=== PATIENT | female | born 1975 | race Caucasian/White ===

== ENCOUNTER 2017-01-17 13:50 | Emergency (ER) | payer MEDICAID ==
[2017-01-17] MEDS ORDERED: Albuterol 2.5 MG/3 ML NEB.SOL* (0.083%) INH ONE (14:49)
[2017-01-17] MEDS ORDERED: Ipratropium 0.5MG/2.5ML NEB* 0.5 MG/2.5 ML NEB.SOLN INH ONE (14:49)
--- NOTE | 2017-01-17 14:49 | UC ---
Shortness of Breath HPI - History of Current Complaint Chief Complaint: UCRespiratory Stated Complaint: COUGH Time Seen by Provider: 01/17/17 14:42 Hx Obtained From: Patient Hx Last Menstrual Period: 12/30/16 ?: No Onset/Duration: Gradual Onset - cough x1 months, Worse Since - last 2-3 days with left anterior chest wall pain with cough. Current Severity: Moderate Aggrevating Factors: Deep Breaths, Recumbent Position Associated Signs & Symptoms: Positive: Cough (Nonproductive), Chest Pain w/ Cough - left lower. Negative: Fever - Risk Factors Pulmonary Embolism: DVT, Previous PE, Smoking Cardiac: Family History Pseudomonas: Negative - Allergy/Home Medications Allergies/Adverse Reactions: Allergies Allergy/AdvReac Type Severity Reaction Status Date / Time No Known Allergies Allergy Verified 01/17/17 13:55 PMH/Surg Hx/FS Hx/Imm Hx Respiratory History: Pulmonary Embolism - Surgical History Surgical History: Yes Surgery Procedure, Year, and Place: Tubal. Gallbladder. Stent in LEFT leg 2014 - Family History Known Family History: Positive: Cardiac Disease, Hypertension, Diabetes - Social History Lives: With Family Alcohol Use: Weekly Substance Use Type: None Smoking Status (MU): Current Every Day Smoker Type: Cigarettes Amount Used/How Often: 1/2-1 PPD Have You Smoked in the Last Year: Yes Cessation Counseling: Patient Advised to Stop - Immunization History Most Recent Influenza Vaccination: NONE 2016 Most Recent Tetanus Shot: UTD Review of Systems Constitutional: Fatigue - with sweats Respiratory: Shortness Of Breath - mainly due to chest pain with cough., Cough Cardiovascular: Chest Pain All Other Systems Reviewed And Are Negative: Yes Physical Exam Triage Information Reviewed: Yes Appearance: Well-Appearing, Well-Nourished, Pain Distress - with cough Vital Signs: Initial Vital Signs Temp 98.2 F 01/17/17 13:56 Pulse 102 01/17/17 13:56 Resp 18 01/17/17 13:56 BP 125/84 01/17/17 13:56 Pulse Ox 99 01/17/17 13:56 Vital Signs Reviewed: Yes Eye Exam: Other ENT: Positive: Pharynx normal, TMs normal Neck exam: Normal Respiratory: Positive: Lungs clear, Wheezing - with coughing Cardiovascular Exam: Normal Abdominal Exam: Normal Bowel Sounds: Positive: Present Musculoskeletal Exam: Normal Musculoskeletal: Positive: ROM Limited @ - unable to take a deep breath without coughing. Neurological Exam: Normal Psychological Exam: Normal Skin Exam: Normal Re-Evaluation - Re-Evaluation First Eval Re-Evaluation Time: 15:45 Change: Improved - able to take a deep breath without coughing. Shortness of Breath Dx - Differential Dx/Diagnosis Differential Diagnosis/HQI/PQRI: Asthma, Chest Wall Pain, COPD Exacerbation, Pneumonia Provider Diagnoses: Bronchospasm. Chest wall pain. Smoking. Discharge - Discharge Plan Condition: Stable Disposition: HOME Prescriptions: Acetaminop/Codeine 30 MG TAB* [Tylenol/Codeine 30 MG TAB*] 1 tab PO Q6H PRN #10 tab MDD 4 PRN Reason: Pain - Chest Albuterol HFA INHALER* [Ventolin HFA Inhaler*] 2 puff INH Q4H PRN #1 mdi PRN Reason: Wheezing predniSONE TAB* [Deltasone TAB*] 20 mg PO DAILY #18 tab Patient Education Materials: Bronchospasm (ED), Prednisone (By mouth), How to Use a Metered-Dose Inhaler (ED), Acetaminophen/Codeine (By mouth) Additional Instructions: Smoking Cessation Tricks. 1. Cut down by 1 cigarette per day every 2-3 days. Write the number of smokes for that day on the calendar. 2. Identify triggers to smoking: after meals, on the phone, in the car, with coffee, on breaks at work, etc. 3. Formulate a plan with a behavior to replace the smoking. Fireballs in the car , doodle pad on the phone, flavored creamer for the coffee, go for a walk after a meal or on break at work. 4. For stress smokes do deep breathing relaxation. Breath deep in through the nose hold the breath in for a few seconds then breath out slowly through the mouth.
[2017-01-17 16:11] VITALS: BP 120/83
--- NOTE | 2017-01-17 16:13 | RAD ---
HISTORY: Cough, shortness of breath COMPARISONS: None VIEWS: 4: Frontal dual-energy and lateral views of the chest. FINDINGS: CARDIOMEDIASTINAL SILHOUETTE: The cardiomediastinal silhouette is normal. LORAINE: The loraine are normal. PLEURA: The costophrenic angles are sharp. No pleural abnormalities are noted. LUNG PARENCHYMA: The lungs are clear. ABDOMEN: The upper abdomen is clear. There is no subphrenic gas. BONES AND SOFT TISSUES: No bone or soft tissue abnormalities are noted. OTHER: None. IMPRESSION: NO ACTIVE CARDIOPULMONARY DISEASE.
== END 2017-01-17 16:33 | disposition home or self-care (01) ==
LOC: UCCORT 13:50
DX: R07.89 Other chest pain (principal); J98.01 Acute bronchospasm; Z86.711 Personal history of pulmonary embolism; Z90.49 Acquired absence of other specified parts of digestive tract; F17.210 Nicotine dependence, cigarettes, 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
CPT/HCPCS: 71020; 93005; 99212; G0463; J7644

== ENCOUNTER → 2017-11-12 10:48 | Day surgery (SDC) | payer MEDICAID ==
[~2017-11-12 10:48] MED LIST: Flumazenil* 0.1 MG/ML 5 ML MDV ONE; Heparin 2 UNITS/ML IVPREMIX* 1,000 ML IV ONE; Heparin 2 UNITS/ML IVPREMIX* 2,000 ML IV ONE; Heparin(*) 1000 UNIT/ML 10 ML VIAL CATH LAB IV ONE; Iodixanol* (CONTRAST) 320 MG/ML 100 ML SDV ONE; Iohexol 350 (CONTRAST) 200 ML MDV IV ONE; LORazepam TAB(*) 1 MG ONE; Lidocaine 1% INJ* 10 MG/ML 30 ML SDV ONE; Midazolam* 1 MG/ML 5 ML VIAL (5 MG) ONE; Naloxone* 0.4 MG/ML 1 ML VIAL ONE; fentaNYL* 50 MCG/ML 2 ML VIAL (100 MCG VIAL) ONE; fentaNYL* 50 MCG/ML 5 ML VIAL (250 MCG VIAL) ONE; nitroGLYCERIN DRIP* 0 MCG/0 ML BTL ONE
[2017-11-12 11:36] LABS: Hematocrit 44 % (35-47); Hemoglobin 15.3 g/dl (12.0-16.0); Mean Corpuscular HGB Conc 35 g/dl (31-36); Mean Corpuscular Hemoglobin 33 pg (27-31); Mean Corpuscular Volume 96 fL (80-97); Mean Platelet Volume 10.3 um3 (7.4-10.4); Platelet Count 181 10^3/ul (150-450); Red Cell Distribution Width 14 % (10.5-15); White Blood Count 7.5 10^3/ul (3.5-10.8)
[2017-11-12 11:46] LABS: INR 0.86 (0.77-1.02)
[2017-11-12 12:05] LABS: EGFR Non-African American 69.6 (>60)
[2017-11-12 12:56] LABS: ABS Basophils 0.1 10^3/ul (0-0.2); ABS Eosinophils 0.2 10^3/ul (0-0.6); ABS Lymphocytes 1.3 10^3/ul (1.0-4.8); ABS Monocytes 0.3 10^3/ul (0-0.8); ABS Neutrophils 5.6 10^3/ul (1.5-7.7); ABS Nucleated RBC 0 10^3/ul; Eosinophil % 2.3 % (0-6); Lymphocyte % 17.9 % (25-47); Nucleated Red Blood Cells % 0
[2017-11-12 16:11] VITALS: BP 94/61
--- NOTE | 2017-11-12 16:22 | PN ---
Progress Note - Progress Note Date of Service: 11/12/17 SOAP: Subjective: No pain. No nausea. No SOB. No lightheadedness. No pain walking to bathroom. Objective: Selected Entries 11/12/17 11/12/17 15:58 16:00 Pulse Rate 59 Heart Rate 60 Respiratory 15 Rate Blood Pressure 94/61 (mmHg) Blood Pressure 67 Mean O2 Sat by Pulse 94 Oximetry NAD, AAO x 3 Right groin is soft and nontender. Dressing is CDI. 2+ pulse at right EQUESTRIAN TRAINER, pop, DPA, 1+ at right DOORPERSON RLE neuromuscular intact Assessment: 42 YOF s/p pelvic and RLE arteriogram and balloon angioplasty of stenotic right Common and External Iliac Arteries. Plan: 1. DC to home. 2. IR clinic nurse will call tomorrow to inquire about groin complication. 3. IR clinic follow up in 1 month. 4. Continue Plavix 75 mg PO daily and ASA 81 PO daily.
--- NOTE | 2017-11-13 11:41 | RAD ---
CPT II Codes: G9500 Procedure(s) performed: 1. Diagnostic pelvic arteriogram. 2. Right lower extremity arteriogram. 3. Transduction of intravascular pressures acquired simultaneously in the infrarenal abdominal aorta and right external iliac artery. 4. Balloon angioplasty of the right common and external iliac arteries. Date of service: November 12, 2017 Indication for procedure: Right lower extremity claudication and rest pain Comparison: CTA October 01, 2017 Contrast: 115 mL Omnipaque 300 Fluoroscopy Time: 5.2 minutes Vessels Accessed: Percutaneous access was obtained with ultrasound guidance in the right common femoral artery in the retrograde direction towards the heart. Catheter arteriography, with the catheter tip located within the lumen of the following arteries, was performed at the right external iliac artery and aorta. Anesthesia: Conscious sedation with IV Fentanyl and Versed as well as local 1% lidocaine injected locally at the arteriotomy site. Conscious sedation time: Timeout: 1308 hours Case end: 1407. hours Total conscious sedation time: 59 minutes Additional medications: * The patient received 1 mg of p.o. Ativan prior to the onset of the procedure. PROCEDURE NOTE AND INTRAPROCEDURAL IMAGING FINDINGS: Immediately prior to the procedure the patient signed consent after thoroughly discussing all risks, benefits and alternative therapies. The patient was positioned on the fluoroscopy table in the supine position and the bilateral groins were shaved, prepped and the patient was draped in standard sterile fashion. Using fluoroscopic imaging the location of the right common femoral head was marked externally with a skin marker on the patient's groin. Utilizing sonographic guidance and palpation, the right common femoral artery was cannulated overlying the femoral head with an 18-gauge needle. An ultrasound image was saved. A 0.035" wire was slowly and smoothly advanced into the common femoral artery under fluoroscopic imaging. No buckling of the wire was visualized to indicate dissection. With the wire securing percutaneous arterial access, the needle was removed and a 7-Bengali SideArm access sheath was advanced under fluoroscopic control into the common femoral artery retrograde into the right external iliac artery securing access. Through the side arm of the access sheath arteriography of the right common femoral artery demonstrated an appropriate puncture of the common femoral artery above the bifurcation and below the inferior epigastric artery. Although there is a prior CTA, contrast arteriography of the lower abdominal aorta and iliac arteries was necessary due to calcified atherosclerosis making the CTA somewhat unreliable. In addition the left common iliac stent causes x-ray beam attenuation making CTA analysis of patency of the stent imperfect. Contrast aortography demonstrates adequate patency in the lower abdominal aorta. Wide patency is seen through the left common iliac stent continuing into the left external iliac artery and the proximal femoral arteries. Corresponding to atherosclerotic disease seen on the previous CTA, there are 2 foci of high-grade stenosis at the right common iliac artery extending to the level of the proximal most right external iliac artery. Bilaterally the internal iliac arteries are occluded at their origins and filled by retrograde flow. The wire was replaced and the flush catheter removed for the purpose of intravascular pressure transduction. The following pressures were simultaneously acquired (mm Hg): SBP DBP Mean Aorta: 149 67 94 REIA: 99 [id number] The wire was reinserted accessing the aorta and over the wire a 6 mm x 80 mm Appterak Passeo-35 was advanced to the area of stenosis. Under fluoroscopic control the balloon was slowly inflated. Ultimately the balloon was inflated above the nominal pressure to a pressure corresponding to approximately 6.4 mm in diameter. The balloon remained inflated for a total of 5 minutes to address arterial spasm. Balloon was deflated and removed and arteriography was performed through the access sheath injecting contrast as far as the lower abdominal aorta and filling the bilateral iliac arterial system. There is wide patency at the previously stenotic right common and external iliac arteries. There is no evidence of significant spasm. In addition to claudication the patient exhibited toe discoloration on physical examination and reported episodes of intermittent severe discoloration of the toes and therefore direct arteriography of the lower extremity arteries is indicated. Injecting from the right common femoral artery sheath, wide patency through the common femoral artery and superficial femoral artery is documented continuing into the popliteal artery. The proximal infrapopliteal arteries and tibioperoneal trunk are adequately patent. More distally the posterior tibial artery is the dominant flow to the foot. The peroneal artery and anterior tibial artery both become extremely diminutive at the mid-level lower leg and there is little to no in-line filling of the dorsalis pedis artery after the narrow right anterior tibial artery fills. Overall there is a possibility of arterial blush of the foot, particularly the toes. After an appropriate resterilization of the arteriotomy and exchange for new sterile gloves, a Minx closure device was deployed at the common femoral arteriotomy and pressure held for approximately 12 minutes. There were no signs of bleeding at the percutaneous arterial access site and the site was dressed with sterile gauze and Tegaderm. The patient tolerated the procedure well and was transferred to angiography holding bay for standard post procedural observation. SUMMARY OF PROCEDURE, IMAGING FINDINGS AND INTERVENTIONS PERFORMED: 1. Diagnostic studies performed: * Arterial access was obtained at the right common femoral artery in the retrograde direction (i.e. towards the heart) with ultrasound guidance. A sonographic image was recorded. * Despite a prior CTA, catheter arteriography was necessary as calcified atherosclerosis of her disease limited CT evaluation on the right and the previously placed stent created artifact evaluating patency of the stent in the left. * Catheter arteriography was performed with the catheter tip in the infrarenal abdominal aorta and right external iliac artery. * Catheter arteriography was performed of the lower abdominal aorta, bilateral iliac arterial system and the entire right lower extremity to the right toes. * Intraluminal pressure transduction measured at the aorta and right external iliac artery simultaneously. * At the conclusion of the procedure arteriography was performed through the side arm of the access sheath to image the distal right external iliac artery, right common femoral artery and proximal superficial femoral artery and femoral profundus. 2. Interpretation of diagnostic studies performed: * High-grade stenosis of the right common and external iliac arteries. * Adequate patency observed at the previously placed left common iliac stent. * Bilaterally the internal iliac arteries are occluded at their origins. * Single vessel runoff provided by the posterior tibial artery to the forefoot. The peroneal artery and anterior tibial artery both become extremely diminutive in the lower half of the right lower leg. There is essentially no filling seen at the right dorsalis pedis artery. * Arteriography performed for the purpose of deploying a percutaneous arterial closure device demonstrates adequately patent right external iliac artery, common femoral artery and proximal superficial femoral artery and femoral profundus. 3. Surgical interventions performed: * Balloon angioplasty of the right common and external iliac artery with a Appterak Passeo-35 6 mm x 80 mm. * Closure of the right common femoral artery was achieved with a Minx closure device followed by 15 minutes of gentle manual pressure. 4. Interpretation of interventions performed: * Final arteriography demonstrated brisk flow through the patent right common iliac artery and external iliac artery. Plan: 1. Aspirin 81 mg p.o. daily for life. 2. Plavix 75 mg p.o. daily for life. 3. Clinical and imaging follow-up according to standard Interventional Radiology protocol.
== END | disposition home or self-care (01) ==
LOC: CHICATH 10:48
PROVIDERS: ATTEND Radiology Diagnostic Radiology
DX: I70.221 Atherosclerosis of native arteries of extremities with rest pain, right leg (principal); I73.1 Thromboangiitis obliterans [Buerger's disease]; Z79.01 Long term (current) use of anticoagulants; Z88.5 Allergy status to narcotic agent; F17.200 Nicotine dependence, unspecified, 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
CPT/HCPCS: 36415; 75736; 76937; 80048; 84702; 85025; 85610; 85730; 99156; 99157; A9270-GY; C1725; C1760; C1769; C1887; J1644; J2250; J2310; J3010

== ENCOUNTER 2018-11-12 10:03 | Observation (INO) | payer MEDICAID ==
[2018-11-12 10:48] LABS: ABS Eosinophils 0.2 10^3/ul (0-0.6); ABS Lymphocytes 0.9 10^3/ul (1.0-4.8); ABS Monocytes 0.3 10^3/ul (0-0.8); ABS Neutrophils 4.5 10^3/ul (1.5-7.7); Hematocrit 43 % (35-47); Hemoglobin 14.9 g/dL (12.0-16.0); Lymphocyte % 14.6 %; Mean Corpuscular HGB Conc 35 g/dL (31-36); Mean Corpuscular Hemoglobin 33 pg (27-31); Mean Corpuscular Volume 96 fL (80-97); Mean Platelet Volume 9.5 fL (7.4-10.4); Nucleated Red Blood Cells % 0.1; Platelet Count 235 10^3/uL (150-450); Red Blood Count 4.49 10^6 /uL (3.70-4.87); Red Cell Distribution Width 13 % (10-15); White Blood Count 5.9 10^3/uL (3.5-10.8)
[2018-11-12 10:56] LABS: INR 0.93 (0.82-1.09)
[2018-11-12] MEDS ORDERED: LORazepam TAB(*) 1 MG ONE ×2 (10:57)
[2018-11-12 11:13] LABS: HCG Pregnancy 0.7 mIU/mL
[2018-11-12 11:20] LABS: EGFR African American 94.7 (>60); EGFR Non-African American 78.3 (>60); Potassium 3.7 mmol/L (3.5-5.0)
[2018-11-12] MEDS ORDERED: Iohexol 350 (CONTRAST) 200 ML MDV IV ONE (13:38)
[2018-11-12] MEDS ORDERED: Heparin 2 UNITS/ML IVPREMIX* 3,000 UNIT/1,500 ML BAG IV ONE ×2 (13:38)
[2018-11-12] MEDS ORDERED: Lidocaine 1% INJ* 10 MG/ML 30 ML SDV ONE ×2 (13:38)
[2018-11-12] MEDS ORDERED: Midazolam* 1 MG/ML 5 ML VIAL (5 MG) ONE ×2 (13:42)
[2018-11-12] MEDS ORDERED: Flumazenil* 0.1 MG/ML 5 ML MDV ONE (13:42)
[2018-11-12] MEDS ORDERED: fentaNYL* 50 MCG/ML 2 ML VIAL (100 MCG VIAL) ONE ×4 (13:42→16:02)
[2018-11-12] MEDS ORDERED: Naloxone* 0.4 MG/ML 1 ML VIAL ONE (13:42)
[2018-11-12] MEDS ORDERED: Heparin(*) 1000 UNIT/ML 10 ML VIAL CATH LAB IV ONE ×2 (14:17)
[2018-11-12] MEDS ORDERED: diPHENhydraMINE IV* 50 MG/ML 1 ml VIAL (BENADRYL) ONE ×2 (14:21)
[2018-11-12] MEDS ORDERED: Alteplase (CATHFLO)* 10 MG in NS 0.9% 50 ML* 40 ML SCH (15:00)
[2018-11-12] MEDS ORDERED: nitroGLYCERIN DRIP* 25,000 MCG/250 ML BTL ONE ×2 (15:54)
[2018-11-12] MEDS ORDERED: ALTEPLASE ONE ×4 (16:00)
[2018-11-12] MEDS ORDERED: NS 0.9% ONE ×4 (16:00)
[2018-11-12] MEDS ORDERED: Metoprolol Tartrate IV* 1 MG/ML 5 ML VIAL ONE ×2 (16:24)
[2018-11-12] MEDS ORDERED: HYDROmorphone INJ1* 1 MG/ML SYRINGE ONE ×6 (18:18→20:47)
[2018-11-12] MEDS ORDERED: HYDROmorphone INJ* 0.5 MG/0.5 ML SYRINGE IV SLOW PU PRN (19:30)
--- NOTE | 2018-11-12 19:35 | PN ---
Progress Note - Progress Note Date of Service: 11/12/18 SOAP: Subjective: Patient with numbness and pain in the left foot and lower leg. She states this is similar to the symptoms she has for >2 weeks. Denies pelvic or low abdomen pain. Denies pain in left groin. Objective: Selected Entries 11/12/18 11/12/18 11/12/18 18:15 18:38 18:45 Heart Rate 59 67 60 Blood Pressure 141/79 124/69 132/81 (mmHg) Blood Pressure 101 84 86 Mean O2 Sat by Pulse 98 97 97 Oximetry 11/12/18 11/12/18 19:03 19:05 Heart Rate 69 75 Blood Pressure 107/66 (mmHg) Blood Pressure 82 Mean O2 Sat by Pulse 94 95 Oximetry NAD, AAO x 3 Abdomen and pelvis are soft, no rebound Left groin over arteriotomy is soft Patient denies significant pain with palpation Dressing is dry Lower leg and foot are cool to touch Left forefoot is violaceous Neuromuscular function of LLE is grossly intact Assessment: 43 YOF status post pelvic arteriography, catheter and wire revascularization of occluded left ENRIQUE-EIA and balloon angioplasty. A Mynx percutaneous closure device was deployed at the left SF arteriotomy, but swelling and bleeding at the site indicated failure. Direct manual pressure was held for approximately 45 minutes. Hematoma appears to not be actively bleeding or enlarging now almost 2 hours post sheath removal. Plan: 1. Bedrest x 6 hours until 2300 hours. 2. Groin check every 1 hour. If there is swelling, bleeding or pain (at the groin), apply direct manual pressure. 3. Patient is experiencing rest pain in the left foot and lower leg which is similar her symptoms for the last 2-3 weeks. She usually would "dangle her legs " and/or pace to alleviate her rest pain which she cannot do now. Therefore she is going to have rest pain which can be addressed with: * Reverse Trendelenberg as much as can be done safely. * Dilaudid 1 mg IV Q 2 hours PRN 4. No Plavix, ASA or anticoagulation until 11/13/18. 5. Baseline H&H 6. Circumference measurement of left thigh as instructed in Nursing communication.
[2018-11-12 21:04] LABS: Hematocrit 37 % (35-47); Hemoglobin 12.8 g/dL (12.0-16.0)
[2018-11-12] MEDS ORDERED: HYDROmorphone INJ1* 1 MG/ML SYRINGE IV PRN (21:20)
--- NOTE | 2018-11-12 21:32 | HP ---
HISTORY AND PHYSICAL: DATE OF ADMISSION: 11/12/18 ADMITTING PROVIDER: Palomo Lester MD PRIMARY CARE PROVIDER: Dr. Jimenez. INTERVENTIONAL RADIOLOGIST: Dr. Tahir Keenan. CHIEF COMPLAINT: Severe rest leg pain in the setting of severe peripheral vascular disease; need for postprocedure bedrest for at least 6 hours. HISTORY OF PRESENT ILLNESS: Ngoc Dubon is a 43-year-old female, current smoker with 25 pack years, severe peripheral vascular disease, status post left iliac stent [address] Green in [place] and status post right angioplasty with Dr. Keenan last year. She has had severe rest pain and claudication symptoms. She had a CTA of aortic runoff 2 days prior to admission on 11/10/18, which demonstrated interval occlusion of the left common iliac artery stent with noncalcified occlusive atherosclerosis and thrombus occluding the left common and external iliac arteries. There was diminutive left common femoral artery fills by collateralized flow. There is recurrent 75 degree stenosis in the distal right common iliac artery extending into the right external iliac artery. There was an interval development of a mural thrombus along the left lateral margin of the lower infrarenal abdominal aorta that narrows the lumen back to approximately 30%. Dr. Keenan attempted revascularization of common iliac arteries without success despite 3-hour attempt. The closure device was attempted, but was not successful and pressure needed to be applied to prevent hematoma. She is requiring additional 6 hours of bedrest and she is not able to stay in the PACU for that period of time given the time of day. She is, therefore, requiring short observation admission to the surgical short stay unit to control pain, provide bedrest in the supervised setting and monitor the vascular status of her left lower extremity. She has rest pain at baseline and is up frequently pacing through the night. She has complained of 9/10 pain in the left foot during the first part of the rest pain and was given 0.5 mg IV Dilaudid at 6:27 and another 0.5 mg IV Dilaudid at 6:32. She was otherwise without complaints with resolved symptoms currently. PAST MEDICAL HISTORY: Severe peripheral vascular disease, current smoker. PAST SURGICAL HISTORY: Cholecystectomy, tubal ligation, left common iliac stent with Dr. Green 4 years ago status post right iliac angiogram in October 2017. MEDICATIONS: Include: 1. Clopidogrel 75 mg p.o. daily (she took last night) 2. Atorvastatin 40 mg daily. 3. Aspirin 81 mg daily. ALLERGIES: DEMEROL (itching) FAMILY HISTORY: Strong family history maternally of breast cancer with her mother and 5 maternal aunts, all having breast cancer (3 aunts survived past from this disease and everyone has been tested negative for BRCA including Ngoc last month). Father of a lung cancer and liver disease age 65. SOCIAL HISTORY: The patient is a current smoker, age 17 till present, currently one-third to one-quarter pack per day, but mostly 1 pack per day, over 25 pack years. She drinks 6 beers about twice a month. 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 PHYSICAL EXAMINATION GENERAL APPEARANCE: No acute distress. VITAL SIGNS: Temperature 97.7, pulse 75, respiratory rate 16, blood pressure 141/79, oxygen sat 98%. HEENT: Normocephalic, atraumatic. Pupils equal, round, and reactive to light. Extraocular motions intact. No scleral icterus. LUNGS: Clear to auscultation anteriorly with no wheezing, rales, or rhonchi. CARDIOVASCULAR: Regular rate and rhythm. No murmurs, rubs, or gallops. ABDOMEN: Soft, nontender, nondistended. No rebound. No guarding. EXTREMITIES: Right, warm and well perfused. Left, light purple color, Dopplerable pulses, not palpable. Sensation intact. Strength intact. Left groin with very small hematoma at the puncture site approximately 2 cm. NEUROLOGIC: Cranial nerves II through XII intact. Moving all extremities. DIAGNOSTIC STUDIES/LAB DATA: White count 5.9, hemoglobin 14.9, hematocrit 43, platelets 235. INR 0.93. Sodium 140, potassium 3.7, chloride 106, carbon dioxide 26, BUN 8, creatinine 0.8, glucose 94, calcium 10.0 Imaging: As per above. She had a CTA of an aortic runoff 2 days prior to admission on 11/10/18, which demonstrated interval occlusion of the left common iliac artery stent with noncalcified occlusive atherosclerosis and thrombus occluding the left common and external iliac arteries. There was diminutive left common femoral artery fills by collateralized flow. There is recurrent 75 degree stenosis in the distal right common iliac artery extending into the right external iliac artery. There was an interval development of a mural thrombus along the left lateral margin of the lower infrarenal abdominal aorta that narrows the lumen back to approximately 30%. ASSESSMENT AND PLAN: Ngoc Dubon is a 43-year-old female with severe peripheral vascular disease, status post failed revascularization attempted in the left common iliac artery and then problems with the closure device in the left femoral access site requiring at least 6 hours of postoperative rest between 5 p.m. and 11 p.m. As PACU is closing, she requires transfer to surgical short stay unit for observation admission. She could potentially leave later tonight versus tomorrow, the next day, depending on the clinical course. She does have significant pain and requirements and rest, which she is now required to do and I am continuing Dilaudid 0.5 mg q.2 hours p.r.n. She will be on Plavix and aspirin for life, which I am starting tomorrow. Continue Lipitor. I am putting in an order for nicotine patch as she does say she is interested in stopping smoking at this time along with a nicotine inhaler, that overall plan will be to refer to [facility] with either Dr. Leora Don or Dr. Bird for potential vascular bypass. She is a full code. Medical surrogate is her Ashish Dubon. I will keep her n.p.o. except for just with meds while she is lying flat. [id number]/CPS #: [id number] [facility] HOSPITALHeather
[2018-11-12 23:42] VITALS: BP 148/72
[2018-11-13] MEDS ORDERED: Clopidogrel TAB* 75 MG PO SCH (09:00)
[2018-11-13] MEDS ORDERED: Atorvastatin* 40 MG TAB PO SCH (09:00)
[2018-11-14] MEDS ORDERED: Aspirin EC TAB* 81 MG TAB.EC PO SCH (09:00)
== END 2018-11-12 23:15 | disposition home or self-care (01) ==
LOC: CHICATH 10:03 → SSU 19:58
PROVIDERS: ADMIT Internal Medicine; ATTEND Internal Medicine
DX: I70.213 Atherosclerosis of native arteries of extremities with intermittent claudication, bilateral legs (principal); I73.9 Peripheral vascular disease, unspecified; M79.604 Pain in right leg; F17.210 Nicotine dependence, cigarettes, 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; Z98.61 Coronary angioplasty status; Z79.82 Long term (current) use of aspirin; J44.9 Chronic obstructive pulmonary disease, unspecified; L20.9 Atopic dermatitis, unspecified; J30.9 Allergic rhinitis, unspecified; K21.0 Gastro-esophageal reflux disease with esophagitis; E55.9 Vitamin D deficiency, unspecified; R41.9 Unspecified symptoms and signs involving cognitive functions and awareness; N64.4 Mastodynia; N60.29 Fibroadenosis of unspecified breast; Z80.3 Family history of malignant neoplasm of breast
CPT/HCPCS: 36415; 80048; 84702; 85014; 85018; 85025; 85347; 85610; 96374; 96376; A9270-GY; G0378; J1170; J1200; J1644; J2250; J2310; J2997; J3010; J3490

== ENCOUNTER 2018-11-21 09:56 | Emergency (ER) | payer MEDICAID ==
--- OUTSIDE RECORDS SUMMARY | 2018-11-21 10:19 | XMS REPORT | Continuity of Care Document ---
:1975 External Reference #:[id number] Author Name Elier Jimenez M.D. 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 Payers Date Identification Numbers Payment Provider Subscriber Policy Number: [id number] Medicaid/[employer] PayID: [id number] [address] [place] [address] Family History Date Family Member(s) Observation Comments General Liver Cancer General Diabetes General Hypertension Father due to Liver Disease () Father due to Lung Cancer () Mother Breast Cancer Mother Hypertension Children 3 Siblings 4 Grandmother due to Natural Causes () Maternal Aunts due to Breast CA At Age 48 () Social History Type Date Description Comments Sex Unknown Marital Status Legal Status: Work Status Unemployed ETOH Use Occasionally consumes alcohol Tobacco Use Start: Unknown Heavy tobacco smoker (more than 10 cigarettes/day) Recreational Drug Use Denies Drug Use Smoking Status Reviewed: 10/22/18 Heavy tobacco smoker (more than 10 cigarettes/day) Allergies, Adverse Reactions, Alerts Description No Known Drug Allergies Medications Active Medications SIG Qnty Indications Ordering Provider Date Plavix 1 by mouth every 90tabs I70.213 Elier Jimenez, 02/03/2017 75mg Tablets day M.D. Atorvastatin Calcium take one tablet 90tabs E78.2 Elier Jimenez, 2016 40mg by mouth at M.D. Tablets bedtime I70.213 History Medications Prednisone 2 tab by mouth 8tabs Elier Jimenez 09/02/2018 - 20mg Tablets daily 4 days M., M.D. 09/05/2018 Azithromycin 1 tab by mouth 7tabs [facility] 09/02/2018 - 500mg every day M., M.D. 09/09/2018 Tablets Azithromycin 1 tab by mouth 10tabs [facility] 01/29/2017 - 500mg every day M., M.D. 02/07/2017 Tablets Prednisone 2 tab by mouth 20tabs [facility] 01/29/2017 - 20mg Tablets daily 4 M., M.D. 02/13/2017 days,30x3d,20x2d ,10x7d Ibuprofen 1 by mouth three 90tabs M15.9 [facility] 01/29/2017 - 800mg Tablets times a day as M. M.D. 08/30/2017 needed Omeprazole 1 by mouth every 30caps K21.0 [facility] 12/25/2016 - 40mg Capsules day M., M.D. 08/30/2017 Buspirone HCL 1 by mouth twice 60tabs F41.9 [facility] 12/25/2016 - 10mg a day M., M.D. 09/29/2018 Tablets Vitamin D-3 1 by mouth every OTC E55.9 [facility] 12/25/2016 - 1000Unit day M., M.D. 08/30/2017 Capsules Vital Signs Date Vital Result Comment 10/26/2018 3:30pm BP Systolic 128 mmHg BP Diastolic 88 mmHg Height 64 inches 5'4" Weight 128.00 lb BMI (Body Mass Index) 22.0 kg/m2 Heart Rate 104 /min Respiratory Rate 16 /min 09/02/2018 1:31pm BP Systolic 138 mmHg BP Diastolic 68 mmHg Height 64 inches 5'4" Weight 130.00 lb BMI (Body Mass Index) 22.3 kg/m2 Heart Rate 65 /min Respiratory Rate 16 /min 04/20/2018 3:01pm BP Systolic 146 mmHg BP Diastolic 88 mmHg Height 64 inches 5'4" Weight 130.00 lb BMI (Body Mass Index) 22.3 kg/m2 Heart Rate 94 /min Respiratory Rate 16 /min 03/18/2018 3:03pm BP Systolic 118 mmHg BP Diastolic 70 mmHg Height 64 inches 5'4" Weight 128.00 lb BMI (Body Mass Index) 22.0 kg/m2 Heart Rate 98 /min Respiratory Rate 16 /min 02/25/2018 1:55pm BP Systolic 140 mmHg BP Diastolic 70 mmHg Height 64 inches 5'4" Weight 129.00 lb BMI (Body Mass Index) 22.1 kg/m2 Heart Rate 68 /min Respiratory Rate 16 /min 09/22/2017 3:02pm BP Systolic 124 mmHg BP Diastolic 72 mmHg Height 64 inches 5'4" Weight 135.00 lb BMI (Body Mass Index) 23.2 kg/m2 Heart Rate 86 /min Respiratory Rate 16 /min 02/03/2017 3:57pm BP Systolic 130 mmHg BP Diastolic 68 mmHg Height 64 inches 5'4" Weight 137.00 lb BMI (Body Mass Index) 23.5 kg/m2 Heart Rate 90 /min Respiratory Rate 16 /min 01/29/2017 11:25am BP Systolic 102 mmHg BP Diastolic 58 mmHg Height 64 inches 5'4" Weight 132.00 lb BMI (Body Mass Index) 22.7 kg/m2 Heart Rate 99 /min Respiratory Rate 16 /min 12/25/2016 9:19am BP Systolic 110 mmHg BP Diastolic 70 mmHg Height 64 inches 5'4" Weight 136.00 lb BMI (Body Mass Index) 23.3 kg/m2 Heart Rate 88 /min Respiratory Rate 18 /min 10/15/2016 1:44pm BP Systolic 138 mmHg BP Diastolic 78 mmHg Height 64 inches 5'4" Weight 132.00 lb BMI (Body Mass Index) 22.7 kg/m2 Heart Rate 78 /min Respiratory Rate 16 /min 10/08/2016 1:30pm BP Systolic 120 mmHg BP Diastolic 68 mmHg Height 64 inches 5'4" Weight 134.00 lb BMI (Body Mass Index) 23.0 kg/m2 Heart Rate 72 /min Respiratory Rate 16 /min Results Test Date Facility Test Result H/L Range Note Laboratory test 10/26/2018 [facility] TSH, Ultrasenstive <pending> finding 113 GAUTAM ORTIZ (607)- - Vitamin D 25 Hydroxy <pending> CBC Auto Diff 11/12/2017 [facility] White Blood Count 7.5 10^3/uL N 3.5-10.8 Red Blood Count 4.60 10^6/uL N 4.00-5.40 Hemoglobin 15.3 g/dL N 12.0-16.0 Hematocrit 44 % N 35-47 Mean Corpuscular Volume 96 fL N 80-97 Mean Corpuscular Hemoglobin 33 pg High 27-31 Mean Corpuscular HGB Conc 35 g/dL N 31-36 Red Cell Distribution Width 14 % N 10.5-15 Platelet Count 181 10^3/uL N 150-450 Mean Platelet Volume 10.3 um3 N 7.4-10.4 Large Platelets Present Abs Neutrophils 5.6 10^3/uL N 1.5-7.7 Abs Lymphocytes 1.3 10^3/uL N 1.0-4.8 Abs Monocytes 0.3 10^3/uL N 0-0.8 Abs Eosinophils 0.2 10^3/uL N 0-0.6 Abs Basophils 0.1 10^3/uL N 0-0.2 Abs Nucleated RBC 0 10^3/uL Granulocyte % 74.8 % N 38-83 Lymphocyte % 17.9 % Low 25-47 Monocyte % 4.1 % N 0-7 Eosinophil % 2.3 % N 0-6 Basophil % 0.9 % N 0-2 Nucleated Red Blood Cells % 0 Laboratory test 11/12/2017 [facility] HCG < 0.60 mIU/mL 1 finding Basic Metabolic 11/12/2017 [facility] Sodium 136 mmol/L Low 139-145 Panel Potassium 3.9 mmol/L N 3.5-5.0 Chloride 104 mmol/L N 101-111 Co2 Carbon Dioxide 24 mmol/L N 22-32 Anion Gap 8 mmol/L N 2-11 Glucose 89 mg/dL N 70-100 Blood Urea Nitrogen 4 mg/dL Low 6-24 Creatinine 0.89 mg/dL N 0.51-0.95 BUN/Creatinine Ratio 4.5 Low 8-20 Calcium 9.8 mg/dL N 8.6-10.3 Egfr Non- 69.6 >60 Egfr 89.5 >60 2 Laboratory test 11/12/2017 [facility] Partial 33.5 seconds N 26.0- 36.3 finding Thrombo Time PTT Inr/Protime 11/12/2017 [facility] Inr 0.86 N 0.77-1.02 Gynecologic 10/15/2016 [facility] [place] Diagn See Comment: 3 Brown-Layer Pap Adeq See Comment: 4 Perfor See Comment: 5 QC Rev See Comment: 6 Comm . Note See Comment: 7 Laboratory test 10/15/2016 [facility] [place] PDF [id number] SEE IMAGE finding Laboratory test 10/08/2016 [facility] TSH (Thyroid Stim 2.35 mcIU/mL N 0.34-5 8 finding Horm) .60 Hemoglobin A1c (Glyco HGB) 5.1 % N Less than 6.0 9 Vitamin D Total 25(Oh) 14.0 ng/mL Low 30-50 10 Lipid Profile 10/08/2016 [facility] Triglycerides 296 mg/dL N 11 (Trig/Chol/HDL) Cholesterol 216 mg/dL N 12 HDL Cholesterol 42.1 mg/dL N 13 LDL Cholesterol 115 mg/dL N 14 Comp Metabolic Panel 10/08/2016 [facility] Sodium 135 mmol/L N 133- 145 Potassium 4.0 mmol/L N 3.5-5.0 Chloride 103 mmol/L N 101-111 Co2 Carbon Dioxide 24 mmol/L N 22-32 Anion Gap 8 mmol/L N 2-11 Glucose 112 mg/dL High 70-100 Blood Urea Nitrogen 7 mg/dL N 6-24 Creatinine 0.82 mg/dL N 0.51-0.95 BUN/Creatinine Ratio 8.5 N 8-20 Calcium 9.8 mg/dL N 8.6-10.3 Total Protein 7.4 g/dL N 6.4-8.9 Albumin 4.5 g/dL N 3.2-5.2 Globulin 2.9 g/dL N 2-4 Albumin/Globulin Ratio 1.6 N 1-3 Total Bilirubin 0.60 mg/dL N 0.2-1.0 Alkaline Phosphatase 78 U/L N 34-104 Alt 29 U/L N 7-52 Ast 31 U/L N 13-39 Egfr Non- 76.8 N >60 Egfr 98.8 N >60 15 CBC Auto Diff 10/08/2016 [facility] White Blood Count 9.2 10^3/uL N 3.5-10.8 Red Blood Count 4.99 10^6/uL N 4.0-5.4 Hemoglobin 15.8 g/dL N 12.0-16.0 Hematocrit 48 % High 35-47 Mean Corpuscular Volume 95 fL N 80-97 Mean Corpuscular Hemoglobin 32 pg High 27-31 Mean Corpuscular HGB Conc 33 g/dL N 31-36 Red Cell Distribution Width 13 % N 10.5-15 Platelet Count 189 10^3/uL N 150-450 Mean Platelet Volume 11 um3 High 7.4-10.4 Abs Neutrophils 6.9 10^3/uL N 1.5-7.7 Abs Lymphocytes 1.9 10^3/uL N 1.0-4.8 Abs Monocytes 0.2 10^3/uL N 0-0.8 Abs Eosinophils 0.1 10^3/uL N 0-0.6 Abs Basophils 0.1 10^3/uL N 0-0.2 Abs Nucleated RBC 0 10^3/uL N Granulocyte % 74.6 % N 38-83 Lymphocyte % 20.7 % Low 25-47 Monocyte % 2.5 % N 1-9 Eosinophil % 1.3 % N 0-6 Basophil % 0.9 % N 0-2 Nucleated Red Blood Cells % 0 N 1 <5.0 Negative 5.0 - 25.0 Indeterminate (Repeat testing recommended after 72 hours) >25.0 Positive Perimenopausal women can display HCG levels of up to 20 mIU/mL 2 Because ethnic data is not always readily available, this report includes an eGFR for both -Americans and non- Americans. The National Kidney Disease Education Program (NKDEP) does not endorse the use of the MDRD equation for patients that are not between the ages of 18 and 70, are , have extremes of body size, muscle mass, or nutritional status, or are non- or non-. According to the National Kidney Foundation, irrespective of diagnosis, the stage of the disease is based on the level of kidney function: Stage Description GFR(mL/min/1.73 m(2)) 1 Kidney damage with normal or decreased GFR 90 2 Kidney damage with mild decrease in GFR 60-89 3 Moderate decrease in GFR 30-59 4 Severe decrease in GFR 15-29 5 Kidney failure <15 (or dialysis) 3 NEGATIVE FOR INTRAEPITHELIAL LESION AND MALIGNANCY. 4 Satisfactory for evaluation. Endocervical and/or squamous metaplastic cells (endocervical component) are present. 5 Urszula Drake, Jacquard Twine Polisher Operator (ASCP) 6 Mer Lewis, Jacquard Twine Polisher Operator (ASCP) 7 The Pap smear is a screening test designed to aid in the detection of premalignant and malignant conditions of the uterine cervix. It is not a diagnostic procedure and should not be used as the sole means of detecting cervical cancer. Both false-positive and false-negative reports do occur. 8 [id number] 9 Therapeutic target for the treatment of diabetes Mellitus patients is <7% HBA1C, and in selective patients <6.0%.Please refer to [place] [employer] Diabetic care guidelines for further information. 10 [id number] 11 Desirable <150 Borderline high 150-199 High 200-499 Very High >500 12 Desirable <200 Borderline high 200-239 High >239 13 Low <40 Desirable: 40-60 High: >60 14 Desirable: <100 mg/dL Near Optimal: 100-129 mg/dL Borderline High: 130-159 mg/dL High: 160-189 mg/dL Very High: >189 mg/dL 15 Because ethnic data is not always readily available, this report includes an eGFR for both -Americans and non- Americans. The National Kidney Disease Education Program (NKDEP) does not endorse the use of the MDRD equation for patients that are not between the ages of 18 and 70, are , have extremes of body size, muscle mass, or nutritional status, or are non- or non-. According to the National Kidney Foundation, irrespective of diagnosis, the stage of the disease is based on the level of kidney function: Stage Description GFR(mL/min/1.73 m(2)) 1 Kidney damage with normal or decreased GFR 90 2 Kidney damage with mild decrease in GFR 60-89 3 Moderate decrease in GFR 30-59 4 Severe decrease in GFR 15-29 5 Kidney failure <15 (or dialysis) Procedures Date Code Description Status 04/20/2018 06195 Visual Screening Test Completed 02/03/2017 96595 Spirometry Completed 01/29/2017 59941 Spirometry Completed Encounters Type Date Location Provider Dx Diagnosis Office Visit 10/26/2018 [facility] Elier Jimenez, J44.9 Chronic obstructive 3:30p M.D. 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 pulmonary disease, unspecified F17.210 Nicotine dependence, cigarettes, 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 L20.9 Atopic dermatitis, unspecified J30.9 Allergic rhinitis, unspecified K21.0 Gastro-esophageal reflux disease with esophagitis E78.2 Mixed hyperlipidemia M79.604 Pain in right leg E55.9 Vitamin D deficiency, unspecified F41.9 Anxiety disorder, unspecified J18.9 Pneumonia, unspecified organism J20.9 Acute bronchitis, unspecified R05 Cough R06.02 Shortness of breath R07.9 Chest pain, unspecified I70.213 Athscl [place] arteries of [facility] dany, bi legs Office Visit 02/03/2017 4:00p [facility] Elier Jimenez J44.9 Chronic obstructive M., M.D. pulmonary disease, unspecified F17.210 Nicotine dependence, cigarettes, 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 L20.9 Atopic dermatitis, unspecified J30.9 Allergic rhinitis, unspecified K21.0 Gastro-esophageal reflux disease with esophagitis E78.2 Mixed hyperlipidemia M79.604 Pain in right leg E55.9 Vitamin D deficiency, unspecified F41.9 Anxiety disorder, unspecified J18.9 Pneumonia, unspecified organism J20.9 Acute bronchitis, unspecified R05 Cough R06.02 Shortness of breath R07.9 Chest pain, unspecified I70.213 Athscl [place] arteries of extrm w intrmt dany, bi legs Office Visit 01/29/2017 11:30a [facility] Elier Jimenez J18.9 Pneumonia, M., M.D. 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 E55.9 Vitamin D deficiency, unspecified F41.9 Anxiety disorder, unspecified R07.9 Chest pain, unspecified Office Visit 12/25/2016 9:45a [facility] Wolfgang Johnson F17.210 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 dependence, 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, 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 R11.2 Nausea with vomiting, unspecified K21.0 Gastro-esophageal reflux disease with esophagitis K92.0 Hematemesis E78.2 Mixed hyperlipidemia F41.0 Panic disorder without agoraphobia E55.9 Vitamin D deficiency, unspecified Office Visit 10/15/2016 1:45p [facility] Wolfgang Johnson F17.210 Nicotine dependence, 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, 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 Z12.4 Encounter for screening for malignant neoplasm of cervix Z12.39 Encounter for oth screening for malignant neoplasm of breast Z12.12 Encounter for screening for malignant neoplasm of rectum Z01.411 Encntr for filament shaper exam (general) (routine) w abnormal findings Office Visit 10/08/2016 1:30p [facility] Wolfgang Johnson I82.501 Chronic embolism DOG POUND ATTENDANT and thombos unsp deep veins of r low extrem Z85.3 Personal history of malignant neoplasm of breast M79.661 Pain in right lower leg M79.661 Pain in right lower leg Z85.3 Personal history of malignant neoplasm of breast 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 J30.9 Allergic rhinitis, unspecified F17.210 Nicotine dependence, cigarettes, 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 Plan of Treatment 10/26/2018 - Elier Jimenez M.D.J44.9 Chronic obstructive pulmonary disease, unspecifiedComments:INCREASE PO FLUIDRESTSMOKING [id number] Mixed hyperlipidemiaComments:DIET REVIEWED CONTINUE DIETWT LOSSF/U LAB FBWI70.213 Atherosclerosis of [place] arteries of extremities with interNew Xrays:Cta, Abd Aorta & BL Iliofemoral [place], Ordered: 10/26/18Comments:SKIN CARE FOOT CARE PODIATRY PRN CAREL20.9 Atopic dermatitis, unspecifiedComments:SKIN CARE INSTRUCTIONS LOTION OR BABY OIL 2-3 APPLICATION PER DAYUSE MOISTURIZING SOAPAVOID PROLONGED WATER EXPOSUREAVOID USING HOT WATER IN EWVJWPZ31.9 Allergic rhinitis, unspecifiedComments:INCREASE PO FLUID USE ANTIHISTAMINE PRN SECOND HAND SMOKING AVOIDANCE SMOKING QDLNAODVHH25.210 Nicotine dependence, cigarettes , 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Comments:SMOKING CESSATION [id number] Gastro-esophageal reflux disease with esophagitisComments:AVOID CAFFEINE, ETOH AND SPICY FOODSTUMS OR MYLANTA PRN CALL WITH PROBLEMS OR CONCERNSTOBACCO USE [id number] Vitamin D deficiency, unspecifiedComments:INCREASE EXPOSURE TO SUNREVIEW OF DIETF41.9 Anxiety disorder, unspecifiedComments:COUNCELLING AND REASSURANCE RELAXATION TECHNIQUES DISCUSSEDCOUNSELED RE: STRESSORS IN LIFE AVOID ALLENERGY/HIGH CAFFEINE GODXXNU72.4 MastodyniaComments:WARM COMPRESS TYLENOL OR MOTRIN PRNRTC FOR F/UN60.29 Fibroadenosis of unspecified breastComments:F/U WITH FNOJWOPBVN86.3 Family history of malignant neoplasm of wwuziaO15.7 Unspecified visual lossComments:BKDPCOJP91.9 Chest pain, unspecifiedComments:EXERCISE/HEAT/MESSAGE TYLENOL OR MOTRIN PRNHEAT PACK SMONING [id number] CoughComments:INCREASE CLEAR LIQUIDSSTEAMGARGLE WARM SALT H2O TID ROBITUSSIN DM PRN SMOKING CESSATION [id number] Pain in leg, unspecifiedComments:TYLENOL OR MOTRIN PRN EXERCISE/HEAT/MESSAGE
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
[2018-11-21] MEDS ORDERED: Morphine 4 MG/ML VIAL (1 ml) 4 MG/ML VIAL IV ONE (11:16)
[2018-11-21] MEDS ORDERED: Ondansetron INJ* 2 MG/ML VIAL IV ONE (11:17)
[2018-11-21] MEDS ORDERED: Morphine 10 MG/ML VIAL (1 ml) IV ONE (11:25)
[2018-11-21 12:10] VITALS: BP 119/72
== END 2018-11-21 12:08 | disposition home or self-care (01) ==
LOC: ED 09:56
DX: I73.9 Peripheral vascular disease, unspecified (principal); I74.3 Embolism and thrombosis of arteries of the lower extremities; R50.9 Fever, unspecified; E78.5 Hyperlipidemia, unspecified; E78.00 Pure hypercholesterolemia, unspecified; Z79.01 Long term (current) use of anticoagulants; Z79.82 Long term (current) use of aspirin; Z88.5 Allergy status to narcotic agent; F17.210 Nicotine dependence, cigarettes, 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
CPT/HCPCS: 96374; 96375; 99282; J2270; J2405